=== PATIENT | female | born 1980 | race Caucasian/White ===

== ENCOUNTER 2016-12-03 16:13 | Observation (INO) | payer OTHER ==
[~2016-12-03] VITALS: Ht 162.6 cm; Wt 75.6 kg
[2016-12-03] MEDS ORDERED: ACET325T14 PO (16:44)
[2016-12-03 16:48] VITALS: BP 112/70
[2016-12-03] MEDS ORDERED: OXYcodone/APAP 7.5/325MG TABLET PO PRN (18:00)
[2016-12-03] MEDS ORDERED: D5%-0.45NACL+KCL 20MEQ 1,000 ML IV SCH (18:00)
[2016-12-03] MEDS ORDERED: MORPHINE SULFATE 4 MG/ML, 1ML IV PRN (18:00)
[2016-12-03] MEDS: CEFOTETAN PMX 2GM/50ML 50 ML IV SCH (19:33)
[2016-12-03] MEDS ORDERED: FENTANYL PF 250 MCG/5ML ONE (19:57)
[2016-12-03] MEDS ORDERED: MIDAZOLAM 1 MG/ML, 2ML ONE (19:57)
[2016-12-03] MEDS ORDERED: KETOROLAC 30 MG/1 ML ONE (20:28)
[2016-12-03] MEDS ORDERED: DEXAMETHASONE 4 MG/ML, 1ML ONE (20:28)
[2016-12-03] MEDS ORDERED: ONDANSETRON 2MG/ML, 2ML ONE (20:28)
[2016-12-03] MEDS ORDERED: METOCLOPRAMIDE 5 MG/ML, 2ML ONE (20:28)
[2016-12-03] MEDS ORDERED: PROPOFOL 10 MG/ML, 20ML ONE (20:28)
[2016-12-03] MEDS ORDERED: BUPIVACAINE/PF 0.25% ONE (20:53)
[2016-12-03] MEDS ORDERED: BUPIVACAINE/PF-EPI 0.25% 1:200K IM ONE (20:55)
[2016-12-03] MEDS ORDERED: OXYcodone 5 MG/5 ML ORAL.SOL UDC PO PRN (21:00)
[2016-12-03] MEDS ORDERED: hydrALAzine 20 MG/ML, 1ML IV PRN ×2 (21:00→22:30)
[2016-12-03] MEDS ORDERED: LABETALOL 5MG/ML, 20ML IV PRN (21:00)
[2016-12-03] MEDS ORDERED: ONDANSETRON 2MG/ML, 2ML IVPush PRN (21:00)
[2016-12-03] MEDS ORDERED: FENTANYL PF 100 MCG/2ML IV PRN (21:00)
[2016-12-03] MEDS ORDERED: ACETAMINOPHEN 325 MG TABLET PO PRN ×2 (21:00→22:30)
[2016-12-03] MEDS ORDERED: MEPERIDINE/PF 25MG/0.5ML IVPush PRN (21:00)
[2016-12-03] MEDS ORDERED: PROMETHAZINE 25 MG/ML, 1ML IV PRN (21:00)
[2016-12-03] MEDS ORDERED: ALBUTEROL/IPRATROPIUM 2.5MG/0.5MG, 3 ML NPPB PRN (21:00)
[2016-12-03] MEDS ORDERED: HYDROmorphone 1 MG/ML, 1ML IV PRN (21:00)
[2016-12-03] MEDS ORDERED: MIDAZOLAM 1 MG/ML, 2ML IV PRN (21:00)
[2016-12-03] MEDS ORDERED: ACETAMINOPHEN 650 MG/20.3 ML UDC ONE (21:25)
[2016-12-03] MEDS ORDERED: ACETAMINOPHEN 325 MG TABLET ONE (21:25)
[2016-12-03] MEDS ORDERED: OXYcodone 5 MG/5 ML ORAL.SOL UDC ONE (21:26)
[2016-12-03] MEDS ORDERED: morphine SULFATE 10 MG/ML, 1ML IV PRN (22:30)
[2016-12-03] MEDS ORDERED: ACETAMINOPHEN 650 MG SUPP PR PRN (22:30)
[2016-12-03] MEDS ORDERED: DIPHENHYDRAMINE 50 MG/ML, 1ML IV PRN (22:30)
[2016-12-03] MEDS ORDERED: DIPHENHYDRAMINE 25 MG CAPSULE PO PRN (22:30)
[2016-12-03] MEDS ORDERED: ENALAPRILAT 1.25 MG/ML, 2ML IV PRN (22:30)
[2016-12-03] MEDS ORDERED: ONDANSETRON 2MG/ML, 2ML IV PRN (22:30)
[2016-12-03] MEDS: POTASSIUM CHLORIDE 20 MEQ in D5%-0.45% NACL 1,000 ML IV SCH (22:55)
[2016-12-04 02:20] VITALS: BP 89/50
[2016-12-04 02:30] VITALS: BP 110/53
[2016-12-04] MEDS ORDERED: KETOROLAC 30 MG/1 ML IV PRN (05:00)
[2016-12-04] MEDS: CEFOTETAN PMX 2GM/50ML 50 ML IV SCH (07:50)
[2016-12-04 07:54] VITALS: BP 112/69
[2016-12-04] MEDS: POTASSIUM CHLORIDE 20 MEQ in D5%-0.45% NACL 1,000 ML IV SCH (08:00)
[2016-12-04] MEDS ORDERED: CEFOTETAN PMX 2GM/50ML 50 ML IVPB SCH (09:00)
[2016-12-04] MEDS ORDERED: SODIUM CHLORIDE FLUSH 10ML SYR IVF SCH (09:00)
[2016-12-04 11:15] VITALS: BP 106/71
[2016-12-04] MEDS ORDERED: OXYC-223 PO (11:56)
[2016-12-04] MEDS ORDERED: CIPR500T3 PO (11:57)
== END 2016-12-04 12:10 | disposition home or self-care (01) ==
LOC: INTOOBSV 16:13 → 4NOR 16:13 → DCLOUNGE 12-04 11:30
PROVIDERS: ADMIT Surgery; ATTEND Surgery
DX: K61.1 Rectal abscess (principal)
CPT/HCPCS: 36415; 46040; 84703; 85025; 87070; 87075; 87076; 87077; 87186; 87205; 96361; 96365; 96366; 96375; G0378; J1100; J1885; J2250; J2270; J2405; J2704; J2765; J3010; J3480; J3490; S0074

== ENCOUNTER 2021-01-09 08:45 | Outpatient (CLI) | payer OTHER ==
[~2021-01-09 08:45] MED LIST: ACET325T14 PO; CIPR500T4 PO; OXYC1TAB16 PO
[2021-01-09] MEDS ORDERED: mirena IUD (09:10)
[2021-01-13] MEDS ORDERED: FENTANYL PF 250 MCG/5ML ONE (09:21)
[2021-01-13] MEDS ORDERED: MIDAZOLAM 1 MG/ML, 2ML ONE (09:21)
[2021-01-13] MEDS ORDERED: DEXAMETHASONE 4 MG/ML, 1ML ONE ×2 (09:29→09:30)
[2021-01-13] MEDS ORDERED: CEFAZOLIN 1,000 MG ONE (09:30)
[2021-01-13] MEDS ORDERED: PROPOFOL 10 MG/ML, 20ML ONE (09:30)
[2021-01-13] MEDS ORDERED: ROCURONIUM 10MG/ML,5ML ONE (10:00)
[2021-01-13] MEDS ORDERED: FENTANYL PF 100 MCG/2ML ONE ×2 (10:02→11:53)
[2021-01-13] MEDS ORDERED: ONDANSETRON 2MG/ML, 2ML ONE (11:52)
== END 2021-01-09 23:59 | disposition home or self-care (01) ==
LOC: STAR 08:45
PROVIDERS: ATTEND Obstetrics & Gynecology Female Pelvic Medicine and Reconstructive Surgery
DX: Z02.9 Encounter for administrative examinations, unspecified (principal)

== ENCOUNTER 2021-01-13 07:26 | Day surgery (SDC) | payer OTHER ==
[~2021-01-13] VITALS: Ht 162.6 cm; Wt 100.5 kg
[~2021-01-13 07:26] MED LIST changes: -OXYC1TAB16 PO; +OXYC1TAB17 PO; +mirena IUD
[2021-01-13 07:51] VITALS: BP 123/84
[2021-01-13] MEDS ORDERED: CHLORHEXIDINE 15 ML UDC PO ONE (08:00)
[2021-01-13] MEDS ORDERED: ACETAMINOPHEN 500 MG TABLET PO ONE (08:00)
[2021-01-13] MEDS ORDERED: LACTATED RINGERS 1,000 ML IV SCH ×2 (08:00→13:00)
[2021-01-13] MEDS ORDERED: SCOPOLAMINE 1MG PATCH TD ONE (08:00)
[2021-01-13 08:20] LABS: HCG UR SG 1.025 (1.003-1.030)
[2021-01-13] MEDS ORDERED: DEXAMETHASONE 4 MG/ML, 1ML ONE ×2 (09:33)
[2021-01-13] MEDS ORDERED: FENTANYL PF 250 MCG/5ML ONE (09:33)
[2021-01-13] MEDS ORDERED: CEFAZOLIN 1,000 MG ONE (09:33)
[2021-01-13] MEDS ORDERED: FENTANYL PF 100 MCG/2ML ONE ×3 (09:33→12:33)
[2021-01-13] MEDS ORDERED: PROPOFOL 10 MG/ML, 20ML ONE (09:33)
[2021-01-13] MEDS ORDERED: ONDANSETRON 2MG/ML, 2ML ONE (09:33)
[2021-01-13] MEDS ORDERED: ROCURONIUM 10 MG/ML,10ML ONE (09:33)
[2021-01-13] MEDS ORDERED: MIDAZOLAM 1 MG/ML, 2ML ONE (09:33)
[2021-01-13] MEDS ORDERED: MIDAZOLAM 1 MG/ML, 2ML IV PRN (11:00)
[2021-01-13] MEDS ORDERED: LABETALOL 5MG/ML, 20ML IV PRN (11:00)
[2021-01-13] MEDS ORDERED: PROMETHAZINE 25 MG/ML, 1ML IVPush PRN (11:00)
[2021-01-13] MEDS ORDERED: PROMETHAZINE 12.5 MG SUPP PR PRN (11:00)
[2021-01-13] MEDS ORDERED: DIPHENHYDRAMINE 50 MG/ML, 1ML IVPush PRN ×2 (11:00)
[2021-01-13] MEDS ORDERED: LORazepam 2 MG/ML, 1ML IVPush PRN (11:00)
[2021-01-13] MEDS ORDERED: OXYcodone 5 MG/5 ML ORAL.SOL UDC PO PRN (11:00)
[2021-01-13] MEDS ORDERED: ONDANSETRON 2MG/ML, 2ML IVPush PRN ×2 (11:00→13:00)
[2021-01-13] MEDS ORDERED: FENTANYL PF 100 MCG/2ML IV PRN (11:00)
[2021-01-13] MEDS ORDERED: DIAZEPAM 5 MG/ML, 2ML IVPush PRN (11:00)
[2021-01-13] MEDS ORDERED: HYDROmorphone 1 MG/ML, 1ML INJ IVPush PRN (11:00)
[2021-01-13] MEDS ORDERED: MEPERIDINE/PF 25MG/0.5ML IVPush PRN (11:00)
[2021-01-13] MEDS ORDERED: EPHEDRINE 50 MG/ML, 1ML IVPush PRN (11:00)
[2021-01-13] MEDS ORDERED: hydrALAzine 20 MG/ML, 1ML IV PRN (11:00)
[2021-01-13] MEDS ORDERED: ALBUTEROL SULFATE 2.5 MG/3 ML NPPB PRN (11:00)
[2021-01-13] MEDS ORDERED: ACETAMINOPHEN 650 MG/20.3 ML UDC ONE (12:33)
[2021-01-13] MEDS ORDERED: OXYcodone 5 MG/5 ML ORAL.SOL UDC ONE (12:33)
[2021-01-13] MEDS ORDERED: MEPERIDINE/PF 25MG/ML,1ML ONE (12:33)
[2021-01-13] MEDS ORDERED: IBUPROFEN 600 MG TABLET PO PRN (13:00)
[2021-01-13] MEDS ORDERED: HYDROcodone/APAP 5/325 TABLET PO PRN (13:00)
[2021-01-13] MEDS ORDERED: KETOROLAC 30 MG/1 ML IVPush PRN (13:00)
[2021-01-13] MEDS ORDERED: PROMETHAZINE 25 MG SUPP PR ONE (13:00)
[2021-01-13] MEDS ORDERED: BUPIVACAINE/PF-EPI 0.25% 1:200K ONE (14:12)
[2021-01-13] MEDS ORDERED: FLUORESCEIN SODIUM 500 MG/5 ML ONE (14:13)
== END 2021-01-13 16:20 | disposition home or self-care (01) ==
LOC: OUT 07:26
PROVIDERS: ATTEND Obstetrics & Gynecology Female Pelvic Medicine and Reconstructive Surgery
DX: N92.0 Excessive and frequent menstruation with regular cycle (principal); D27.1 Benign neoplasm of left ovary; N80.0 Endometriosis of uterus; D25.1 Intramural leiomyoma of uterus; N94.10 Unspecified dyspareunia; N88.8 Other specified noninflammatory disorders of cervix uteri; N73.6 Female pelvic peritoneal adhesions (postinfective); G43.909 Migraine, unspecified, not intractable, without status migrainosus; F32.9 Major depressive disorder, single episode, unspecified; F41.9 Anxiety disorder, unspecified; Z87.442 Personal history of urinary calculi; Z88.1 Allergy status to other antibiotic agents; Z88.2 Allergy status to sulfonamides; Z90.49 Acquired absence of other specified parts of digestive tract; Z97.5 Presence of (intrauterine) contraceptive device
CPT/HCPCS: 58552; 81025; 88304; 88307; J0690; J1100; J2175; J2250; J2405; J2704; J3010; J7120; S2900